=== PATIENT | male | born 2000 | race Caucasian/White ===

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

== ENCOUNTER 2022-02-03 16:13 | Emergency (ER) | payer SELFPAY ==
--- NOTE | 2022-02-03 16:10 | ECG_ITS ---
APPROVED REPORT Exam: Resting ECG HR:96 bpm ECG Measurements Heart Rate 96 AXES NM 179 P 80 QRSd 98 QRS 99 QT 332 T 54 QTc 386 Conclusion SINUS RHYTHM POSSIBLE RIGHT ATRIAL ENLARGEMENT [0.25mV P-WAVE] LEFT ATRIAL ENLARGEMENT [-0.15mV P-WAVE IN V1/V2] BORDERLINE RIGHT AXIS DEVIATION [QRS AXIS > 90] INCOMPLETE RIGHT BUNDLE BRANCH BLOCK [90+ ms QRS DURATION, TERMINAL R IN V1/V2, 40+ ms S IN I/aVL/V4/V5/V6] ABNORMAL ECG UNCONFIRMED REPORT Electronically signed by : Diego Covarrubias MD 02/04/2022 08:10:01
[2022-02-03 16:13] VITALS: BP 120/84; PULSE 85; RESP 16; TEMP 37; O2SAT 99; BMI 19.8
--- NOTE | 2022-02-03 16:16 | XR_ITS ---
FINAL REPORT CLINICAL HISTORY: cough FINDINGS: The heart size is normal. The mediastinum is within normal limits. There is no acute cardiopulmonary process. There is no pleural effusion. There is no pneumothorax. The bony thorax is intact. IMPRESSION: No acute cardiopulmonary process. Reviewed, Interpreted and Dictated by Bay Hancock MD Transcribed by Chandan Frank Authenticated by Bay Hancock MD on 02/03/2022 04:54:36 PM [facility]
[2022-02-03 16:51] LABS: Basophils # 0.2 K/mm3 (0-0.2); Basophils % 3.4 % (0.1-2.0); Eosinophils % 0.6 % (0.1-12.0); Hematocrit 48.3 % (42.0-52.0); Hemoglobin 16.2 g/dL (14.1-18.0); Lymphocytes # 1.4 K/mm3 (0.7-4.5); Lymphocytes % 23.1 % (10-50); Mean Corpuscular HGB Conc 33.5 g/dL (31.8-35.4); Mean Corpuscular Hemoglobin 28.7 pg (27.0-31.2); Mean Corpuscular Volume 85.6 fl (80-94); Mean Platelet Volume 8.8 fl (7.4-10.4); Monocytes # 0.3 K/mm3 (0.1-1.0); Monocytes % 5.8 % (1.7-9.3); Neutrophils % 67.1 % (37.0-80.0); Platelet Count 240 K/mm3 (142-424); Red Blood Count 5.64 M/mm3 (4.60-6.20); Red Cell Distribution Width 14.5 % (11.5-17.5); White Blood Count 5.9 K/mm3 (4.5-13.0)
[2022-02-03 16:55] LABS: Lipase 45 U/L (23-300)
[2022-02-03 16:56] LABS: Alanine Aminotransferase 23 U/L (12-78); Albumin Level 4.6 g/dl (3.5-5.0); Albumin/Globulin Ratio 1.7 (1.1-1.8); Alkaline Phosphatase 66 U/L (38-126); Aspartate Amino Transferase 29 U/L (17-59); Bilirubin,Total 1.2 mg/dl (0.2-1.3); Blood Urea Nitrogen 11 mg/dl (9-20); Calcium 9.7 mg/dl (8.4-10.2); Carbon Dioxide 29 mmol/L (22.0-30.0); Chloride 105 mmol/L (98-107); Creatinine Clearance Estimated 139 mL/min (50-200); Estimated Glomerular Filt Rate 125 ml/min (>60); GFR (African American) 151 ML/MIN (>60); Globulin 2.7 g/dL (1.3-3.2); Glucose 112 mg/dl (74-100); Sodium 141 mmol/L (136-145); Total Protein,Serum 7.3 g/dl (6.3-8.2)
[2022-02-03 17:01] VITALS: BP 113/62; PULSE 89; RESP 23; O2SAT 97
[2022-02-03 17:11] LABS: Troponin I < 0.01 ng/ml (0.00-0.034)
[2022-02-03 17:30] VITALS: BP 120/62; PULSE 78; RESP 18; O2SAT 98
--- NOTE | 2022-02-03 17:31 | PC.NURSE ---
Updated pt on POC.
--- NOTE | 2022-02-03 18:02 | HMH.EDGENADL ---
ED Disposition Clinical Impression: Nonspecific chest pain Disposition: Home, Self-Care Condition on Discharge: Good Instructions: DI for Atypical Chest Pain Prescriptions: Ibuprofen [Ibuprofen 600mg Tablet] 600 mg PO TID #15 tab Transmission Status: Pending to [facility] [employer] #[id number] Referrals: Provider,Referral, [Primary Care Provider] - - Critical Care Critical Care Time: No Attestation: On 02/03/22, the high probability of a clinically significant, sudden or life threatening deterioration of the following system(s) required my full and direct attention, intervention and personal management. The time I documented below is in addition to time spent performing reported procedures but includes the following listed in this critical care notation. Medical Decision Making - Medical Records Medical records reviewed: Yes: I reviewed the patient's medical records. - Amandeep Inquiry Pt receiving controlled substance: No Vital Signs: 02/03/22 16:13 02/03/22 17:01 02/03/22 17:30 Temperature 98.6 F Temperature Source Oral Pulse Rate 89 78 Pulse Rate [Right] 85 Respiratory Rate 16 23 18 Blood Pressure 113/62 120/62 Blood Pressure [Right Arm] 120/84 Blood Pressure Mean 79 77 Blood Pressure Mean [Right Arm] 96 Blood Pressure Source [Right Arm] Automatic Cuff Blood Pressure Position [Right Arm] Sitting 02 Sat by Pulse Oximetry 99 97 98 Oxygen Delivery Method Room Air - Lab Data Lab Results 02/03/22 16:35: WBC 5.9, RBC 5.64, Hgb 16.2, Hct 48.3, MCV 85.6, MCH 28.7, MCHC 33.5, RDW 14.5, Plt Count 240, MPV 8.8, Neut % (Auto) 67.1, Lymph % (Auto) 23.1, [place] % (Auto) 5.8, Eos % (Auto) 0.6, Baso % (Auto) 3.4 H, Neut # (Auto) 4.0, Lymph # (Auto) 1.4, [place] # (Auto) 0.3, Eos # (Auto) 0.0, Baso # (Auto) 0.2 02/03/22 16:35: Sodium 141, Potassium 4.0, Chloride 105, Carbon Dioxide 29, Anion Gap 11.0, BUN 11, Creatinine 0.80, Estimated Creat Clear 139, Estimated GFR 125, Est GFR ( Amer) 151, Glucose 112 H, Calcium 9.7, Total Bilirubin 1.2, AST 29, ALT 23, Alkaline Phosphatase 66, Troponin I < 0.01, Total Protein 7.3, Albumin 4.6, Globulin 2.7, Albumin/Globulin Ratio 1.7 02/03/22 16:35: Lipase 45 Result diagrams: 02/03/22 16:35 02/03/22 16:35 Orders (Tests/Meds): ED MEDICATIONS Discontinued Medications Generic Name Dose Route Start Last Admin Trade Name Deepika PRN Reason Stop Dose Admin Ibuprofen 800 mg 02/03/22 16:16 02/03/22 16:26 Ibuprofen 400 Mg Tablet PO 02/03/22 16:17 800 mg ONCE ONE Administration ORDERS Category Date Time Status Troponin I Q3H Lab 02/03/22 19:30 Ordered Troponin I Q3H Lab 02/03/22 22:30 Ordered - Radiology Data #1 Image(s): Chest Image Reviewed: Yes I reviewed the patient's radiology results, Yes I reviewed the patient's radiology image, Yes I have reviewed radiologist's interpretation Preliminary Findings: Normal/NAD - ECG Data Tracing #1 I reviewed this ECG and interpreted as documented below: ECG initial impression date: 02/03/22 ECG initial impression time: 16:54 ECG normal with no acute: arrhythmias, ischemia, conduction abnormalities, chamber hypertrophy Normal Sinus Rhythm: Yes - Reevaluation(s) Time: 18:06 Reevaluation #1: On reevaluation, patient is pain-free. Feeling better. Work-up unremarkable. Patient is to follow-up with PCP in 48 hours. Given strict return precautions. Verbalized understanding. Medical Decision Narrative: 21-year-old male presenting with some subacute chest discomfort. Atypical in nature. Not reproducible. Work-up initiated. General Adult HPI - General Chief complaint: PAIN Stated complaint: pain Time Seen by Provider: 02/03/22 16:20 Mode of Arrival: Ambulatory Limitations: No Limitations Description of Symptoms (Recalled from ER Triage Doc. by RN): pt advises he has been having pain in his chest area for over a month. Advises it has been ongoing and come
[2022-02-03 18:31] VITALS: BP 120/75; PULSE 89; RESP 16; TEMP 36.9; O2SAT 97
== END 2022-02-03 18:31 | disposition home or self-care (01) ==
PROVIDERS: Emergency Provider Emergency Medicine
DX: R07.89 Other chest pain (principal)
CPT/HCPCS: 71045; 80053; 83690; 84484; 85025; 93005; 99283

== ENCOUNTER 2024-01-30 15:50 | Emergency (ER) | payer MEDICAID, SELFPAY ==
[2024-01-30 15:56] VITALS: BMI 19.6
--- NOTE | 2024-01-30 15:56 | US_ITS ---
FINAL REPORT CLINICAL HISTORY: torsion r/o FINDINGS: Sonographic images of the testicles and scrotum were obtained. The right testicle measures 4.8 cm in length. Normal blood flow is noted to the right testicle. There is no evidence of testicular mass. There is no evidence of hydrocele. A 3 mm cyst or spermatocele is noted in the head of the right epididymis. The left testicle measures 4.3 cm in length. Normal blood flow is noted to the left testicle. There is no evidence of mass. A left-sided varicocele is noted. No focal abnormality is seen of the epididymis. IMPRESSION: Unremarkable testicles without evidence of mass or torsion. Left varicocele. 3 mm cyst or spermatocele in the head of the right epididymis. Authenticated and ERN
[2024-01-30 15:59] VITALS: BP 133/83; PULSE 91; RESP 20; TEMP 36.7; O2SAT 99; BMI 19.6
[2024-01-30 16:07] LABS: Microscopic, Urine URINE MICROSCOPIC (MICROSCOPIC)
[2024-01-30 16:08] LABS: Appearance,Urine CLEAR (Clear); Bilirubin,Urine Negative (Negative); Blood, Urine Negative (Negative); Color,Urine YELLOW (Yellow); Glucose,Urine (UA) Negative (Negative); Ketones,Urine Negative (Negative); Leukocyte Esterase,Urine Negative (Negative); Nitrate,Urine Negative (Negative); PH,Urine 6.5 (5.0-8.5); Protein,Urine Negative (Negative); Urobilinogen,Urine 0.2 EU/dl (0.2)
--- NOTE | 2024-01-30 16:14 | HMH.EDGENADL ---
Discharge Plan Disposition Patient Disposition: Home, Self-Care Prescriptions Prescriptions: New ibuprofen 800 mg tablet 800 mg PO Q8H PRN (Reason: pain) Qty: 10 0RF No Action ibuprofen 600 MG tablet 600 mg PO TID Qty: 15 0RF hydrocortisone-pramoxine 10 GM foam 1 applicatio RC BID 7 Days Qty: 10 0RF Referrals Follow up/Referrals: Naun Zelaya MD [Staff Physician] - See instructions Provider,MD Rosalva [Primary Care Provider] - See instructions Activity Restrictions/Add. Instructions Additional Instructions/Restrictions: It was found today that you have something called a varicocele which is a vein that is longer than normal in your scrotum. You also have something called a spermatocele which is a small increased collection of fluid above your testicle that is not infectious. These can become painful however sometimes are not. Please take ibuprofen as prescribed for pain. If symptoms persist or it mcrae while you pee you may need antibiotics however today after looking at your urine it does not seem like you have a significant infection. If symptoms persist please call and schedule outpatient follow-up with Dr. Zelaya. Clinical Impressions Clinical Impression: Spermatocele, Left varicocele Instructions Patient Instructions: DI for Urinary Tract Infection (UTI), DI for Urinary Tract Infection in Children Discharge ED Provider: Rohith Gotti General Adult HPI General Chief complaint: Urogenital-Male Stated complaint: groin pain Time Seen by Provider: 01/30/24 15:57 Mode of Arrival: Ambulatory Source of Information: Patient Limitations: No Limitations Description of Symptoms (Recalled from ER Triage Doc. by RN): pt to ed c/o bilateral testicle pain. pt states the pain started out of nowhere and has not eased up. pt reports associated pelvic pressure. pt denies urinary symptoms. History of Present Illness HPI narrative: Patient is a 23-year-old male with no pertinent past medical history presents emergency department for evaluation of bilateral testicular pain. Onset was acute, occurring at noon today, severe, nonmodifiable. No skin lesions, no urethral discharge. He presents here for continued evaluation. Related Data Previous Rx's Medication Instructions Recorded hydrocortisone 1 %-pramoxine 1 % 1 applicatio RC BID 7 days #10 08/13/21 rectal foam grams ibuprofen 600 mg tablet 600 mg PO TID #15 tabs 02/03/22 ibuprofen 800 mg tablet 800 mg PO Q8H PRN pain #10 tabs 01/30/24 Allergies Allergy/AdvReac Type Severity Reaction Status Date / Time No Known Allergies Allergy Verified 08/13/21 18:01 [facility] Disclaimer: The information contained in this section may have been updated after the patient was seen, as this information can be updated by other users. Social History Smoking Status: Current every day smoker alcohol intake: never current occupational status: other Travel in the last 8 weeks: None ROS Obtained: Yes Systems reviewed as appropriate & no additional complaints except as documented Physical Exam General General appearance: alert and other (Appearing uncomfortable in bed) Head Head exam: atraumatic and normocephalic Eye Eye exam: Present PERRL ENT ENT exam: Present mucous membranes moist Neck Neck exam: Present normal inspection Chest Chest inspection: Present normal inspection and symmetric chest wall rise Respiratory Respiratory exam: Absent respiratory distress Cardiovascular Cardiovascular exam: Present regular rate and normal rhythm Abdominal Exam Abdominal exam: Present soft; Absent tenderness exam: Present other (This symmetric size testicles, no overlying skin changes.) Extremities Exam Extremities exam: Present normal inspection Neurological Exam Neurological exam: Present alert Psychiatric Psychiatric exam: Present normal affect Skin Skin exam: Present warm and dry Medical Decision Making Amandeep Inquiry Pt receiving controlled substance: No Vital Signs: 01/30/24 15:59 01/30/24 17:00 01/30/24 17:30 Temperature 98.1 F Temperature Source Oral Pulse Rate 78 71 Pulse Rate [Left Radial] 91 H Respiratory Rate 20 Blood Pressure 120/70 107/66 L Blood Pressure [Right Arm] 133/83 Blood Pressure Mean [Right Arm] 99 02 Sat by Pulse Oximetry 99 99 98 Oxygen Delivery Method Room Air Room Air 01/30/24 17:39 Temperature 98.1 F Temperature Source Oral Pulse Rate 65 Pulse Rate [Left Radial] Respiratory Rate 15 Blood Pressure 107/66 L Blood Pressure [Right Arm] Blood Pressure Mean [Right Arm] 02 Sat by Pulse Oximetry Oxygen Delivery Method Room Air Lab Data Lab Results 01/30/24 15:59: Urine Color Yellow, Urine Appearance Clear, Urine pH 6.5, Ur Specific Gerry 1.010, Urine Protein Negative, Urine Glucose (UA) Negative, Urine Ketones Negative, Urine Blood Negative, Urine Nitrate Negative, Urine Bilirubin Negative, Urine Urobilinogen 0.2, Ur Leukocyte Esterase Negative, Urine RBC None, Urine WBC None, Ur Squamous Epith Cells None, Urine Bacteria None 01/30/24 16:40: WBC 10.5, RBC 5.05, Hgb 14.6, Hct 44.2, MCV 87.4, MCH 28.9, MCHC 33.0, RDW 13.8, Plt Count 246, MPV 8.6, Neut % (Auto) 82.3 H, Lymph % (Auto) 12.6, [place] % (Auto) 4.3, Eos % (Auto) 0.4, Baso % (Auto) 0.5, Neut # (Auto) 8.6 H, Lymph # (Auto) 1.3, [place] # (Auto) 0.5, Eos # (Auto) 0.0, Baso # (Auto) 0.1, Sodium 141, Potassium 3.5, Chloride 106, Carbon Dioxide 27, Anion Gap 11.5, BUN 8 L, Creatinine 0.80, Estimated Creat Clear 136, Estimated GFR 122, Est GFR ( Amer) 148, Glucose 92, Calcium 9.9, Total Bilirubin 0.6, AST 32, ALT 19, Alkaline Phosphatase 69, Total Protein 7.5, Albumin 4.7, Globulin 2.8, Albumin/Globulin Ratio 1.7 01/30/24 16:40 01/30/24 16:40 Orders (Tests/Meds): ED MEDICATIONS Generic Name Dose Route Start Last Admin Trade Name Freq PRN Reason Stop Dose Admin Sodium Chloride 10 ml 01/30/24 16:42 Sodium Chloride 0.9% 10ml Flush Syringe IV 02/29/24 16:41 NEEDED PRN Maintain IV Site Discontinued Medications Generic Name Dose Route Start Last Admin Trade Name Freq PRN Reason Stop Dose Admin Acetaminophen 1,000 mg 01/30/24 15:58 01/30/24 16:42 Acetaminophen 1,000mg/100ml Vial IV 01/30/24 15:59 1,000 mg ONCE ONE Administration Iopamidol 75 ml 01/30/24 16:51 01/30/24 16:54 Iopamidol-370 (76%);100ml Bottle IV 01/30/24 16:52 75 ml ONCE ONE Administration Ketorolac Tromethamine 30 mg 01/30/24 15:58 01/30/24 16:41 Ketorolac 30mg/Ml Vial IV 01/30/24 15:59 30 mg ONCE ONE Administration Sodium Chloride 10 ml 01/30/24 16:51 01/30/24 16:54 Sodium Chloride 0.9% 10ml Syr (Rad Only) IV 01/30/24 16:52 10 ml ONCE ONE Administration ORDERS Category Date Time Status CT abdomen pelvis w con Stat Cat Scan 01/30/24 16:31 Completed CBC w/Auto Diff [Complete Blood Count Auto Diff] Stat Lab 01/30/24 16:40 Completed CMP [Comprehensive Metabolic Panel] Stat Lab 01/30/24 16:40 Completed Urinalysis and Microscopic Stat Lab 01/30/24 15:59 Completed US Testicular Stat Ultrasound 01/30/24 15:56 Completed Medical Decision Narrative: In summary patient is a 23-year-old male with past medical history described above who presents emergency department for evaluation of testicular pain. Patient is hemodynamically stable and appearing uncomfortable upon arrival, afebrile. Differential diagnosis includes epididymitis, epididymal orchitis, mass, testicular torsion, urinary tract infection, among others. Workup will be conducted with urinalysis, emergent testicular ultrasound. Initial inventions include Tylenol, Toradol. Preliminary ultrasound read conveyed from [facility] with bilateral varicoceles and epididymitis, workup will be broadened with CT imaging of the abdomen pelvis to screen for obstructive venous pathology. Initial workup reviewed by me, hematologic labs are nonactionable. Urinalysis interpreted by me and negative for infection, no leukocyte Esterace. Ultrasound read as left-sided varicocele, 3 mm cyst or spermatocele in the head of the right epididymis. Upon repeat evaluation patient was resting comfortably in bed, resolution of pain. Given this patient be discharged with high-dose ibuprofen and outpatient urology follow-up. Critical Care Critical Care Time Critical Care Time: No
--- NOTE | 2024-01-30 16:31 | CT_ITS ---
PROCEDURE INFORMATION: Exam: CT Abdomen And Pelvis With Contrast Exam date and time: 01/30/2024 4:52 PM Age: 23 years old Clinical indication: Other: B/l varicoceles; Additional info: B/l varicoceles/ screen intrabdominal TECHNIQUE: Imaging protocol: Computed tomography of the abdomen and pelvis with contrast. Radiation optimization: All CT scans at this facility use at least one of these dose optimization techniques: automated exposure control; mA and/or kV adjustment per patient size (includes targeted exams where dose is matched to clinical indication); or iterative reconstruction. Contrast material: ISOVUE; Contrast volume: 75 ml; Contrast route: IV; COMPARISON: CR XR CHEST PORTABLE 02/03/2022 4:25 PM FINDINGS: Liver: Normal. No mass. Gallbladder and bile ducts: Normal. No calcified stones. No ductal dilation. Pancreas: Normal. No ductal dilation. Spleen: Normal. No splenomegaly. Adrenal glands: Normal. No mass. Kidneys and ureters: Normal. No hydronephrosis. Stomach and bowel: Unremarkable. No obstruction. No mucosal thickening. Appendix: No evidence of appendicitis. Intraperitoneal space: Unremarkable. No free air. No significant fluid collection. Vasculature: Unremarkable. No abdominal aortic aneurysm. Lymph nodes: Unremarkable. No enlarged lymph nodes. Urinary bladder: Unremarkable as visualized. Reproductive: Unremarkable as visualized. Bones/joints: Transitional lumbosacral segment. Mild lumbar spine dextroscoliosis. Soft tissues: Unremarkable. IMPRESSION: No significant intra-abdominal abnormality.
--- NOTE | 2024-01-30 16:32 | PC.NURSE ---
patient back in room at this time.
[2024-01-30] MEDS: KETOROLAC 30MG/ML VIAL 30 MG IV (16:41)
[2024-01-30] MEDS: ACETAMINOPHEN 1,000MG/100ML VIAL 1000 MG IV (16:42)
[2024-01-30 16:54] LABS: Basophils # 0.1 K/mm3 (0-0.2); Basophils % 0.5 % (0.1-2.0); Eosinophils % 0.4 % (0.1-12.0); Hematocrit 44.2 % (42.0-52.0); Hemoglobin 14.6 g/dL (14.1-18.0); Lymphocytes # 1.3 K/mm3 (0.7-4.5); Lymphocytes % 12.6 % (10-50); Mean Corpuscular Hemoglobin 28.9 pg (27.0-31.2); Mean Corpuscular Volume 87.4 fl (80-94); Mean Platelet Volume 8.6 fl (7.4-10.4); Monocytes # 0.5 K/mm3 (0.1-1.0); Monocytes % 4.3 % (1.7-9.3); Neutrophils # 8.6 K/mm3 (1.8-7.8); Neutrophils % 82.3 % (37.0-80.0); Platelet Count 246 K/mm3 (142-424); Red Blood Count 5.05 M/mm3 (4.60-6.20); Red Cell Distribution Width 13.8 % (11.5-17.5); White Blood Count 10.5 K/mm3 (4.8-10.8)
[2024-01-30] MEDS: SODIUM CHLORIDE 0.9% 10ML SYR (RAD ONLY) 10 ML IV (16:54)
[2024-01-30] MEDS: IOPAMIDOL-370 (76%);100ML BOTTLE 75 ML IV (16:54)
--- NOTE | 2024-01-30 16:55 | PC.NURSE ---
brought pt back from radiology
[2024-01-30 17:00] VITALS: BP 120/70; PULSE 78; O2SAT 99
[2024-01-30 17:03] LABS: Alanine Aminotransferase 19 U/L (12-78); Albumin Level 4.7 g/dl (3.5-5.0); Albumin/Globulin Ratio 1.7 (1.1-1.8); Alkaline Phosphatase 69 U/L (38-126); Anion Gap 11.5 mEq/L (5-15); Aspartate Amino Transferase 32 U/L (17-59); Bilirubin,Total 0.6 mg/dl (0.2-1.3); Blood Urea Nitrogen 8 mg/dl (9-20); Calcium 9.9 mg/dl (8.4-10.2); Carbon Dioxide 27 mmol/L (22.0-30.0); Chloride 106 mmol/L (98-107); Creatinine Clearance Estimated 136 mL/min (50-200); Estimated Glomerular Filt Rate 122 ml/min (>60); GFR (African American) 148 ML/MIN (>60); Globulin 2.8 g/dL (1.3-3.2); Glucose 92 mg/dl (74-100); Potassium 3.5 mmoL/L (3.5-5.1); Sodium 141 mmol/L (136-145); Total Protein,Serum 7.5 g/dl (6.3-8.2)
[2024-01-30 17:30] VITALS: BP 107/66; PULSE 71; O2SAT 98
[2024-01-30 17:39] VITALS: BP 107/66; PULSE 65; RESP 15; TEMP 36.7; O2SAT 98
[2024-01-30 18:00] VITALS: BP 125/53; PULSE 108; O2SAT 97
--- NOTE | 2024-01-30 18:00 | PC.NURSE ---
Dr. Gotti at beside
== END 2024-01-30 18:10 | disposition home or self-care (01) ==
PROVIDERS: Emergency Provider Emergency Medicine
DX: N43.40 Spermatocele of epididymis, unspecified (principal); I86.1 Scrotal varices; F17.210 Nicotine dependence, cigarettes, uncomplicated
CPT/HCPCS: 74177; 76870; 80053; 81001; 85025; 96374; 96375; 99285; J0131; Q9967